=== PATIENT | male | born 1980 | race Caucasian/White ===

== ENCOUNTER 2021-10-07 18:34 | Inpatient (IN) | payer BC ==
[~2021-10-07] VITALS: Ht 193 cm; Wt 144.0 kg
[~2021-10-07 18:34] MED LIST: CLEO300C OR; PERC7.5T8 OR
[2021-10-07] MEDS ORDERED: LABETALOL 100MG/20ML VIAL IV STA (19:38)
[2021-10-07 20:26] LABS: BASO % 0.3 % (0.0-1.0); EOS # 0.1 10^3/uL (0.0-0.5); EOS % 0.8 % (0.0-3.0); HEMATOCRIT 39.3 % (42.0-52.0); LYMPH # 1.6 10^3/uL (1.5-5.0); LYMPH % 13.7 % (24.0-44.0); MEAN CORPUSCULAR HEMOGLOBIN 30.6 pg (27.0-33.0); MEAN CORPUSCULAR HGB CONC 35.6 g/dl (32.0-36.5); MEAN CORPUSCULAR VOLUME 85.8 fl (80.0-96.0); MONO # 0.9 10^3/uL (0.0-0.8); NEUTROPHILS % 76.4 % (36.0-66.0); PLATELET COUNT, AUTOMATED 286 10^3/uL (150-450); RED BLOOD COUNT 4.58 10^6/uL (4.30-6.10); WHITE BLOOD COUNT 11.8 10^3/uL (4.0-10.0)
[2021-10-07 21:00] LABS: CK-MB VALUE MASS 3.8 NG/ML (<3.6); MB/CK RELATIVE INDEX 4.09 (< OR =4)
[2021-10-07 21:02] LABS: CALCIUM LEVEL 9.5 MG/DL (8.5-10.1); CREATININE FOR GFR 2.77 MG/DL (0.70-1.30); FREE T4 0.78 NG/DL (0.76-1.46); GLOMERULAR FILTRATION RATE 27.3 (>60); THYROID STIMULATING HORMONE 2.79 uIU/ML (0.358-3.740)
[2021-10-07 21:26] LABS: RSV AMPLIFICATION NEGATIVE (NEGATIVE)
[2021-10-07] MEDS ORDERED: niCARdipine IV 40 MG in IV 1 EA IV SCH (21:40)
[2021-10-07] MEDS ORDERED: NS 1,000 ML IV ONE (21:40)
[2021-10-07 22:19] LABS: CK-MB VALUE MASS 3.4 NG/ML (<3.6); MB/CK RELATIVE INDEX 4.15 (< OR =4)
[2021-10-07] MEDS ORDERED: HOME MED LIST COMPLETE! XX SCH (23:40)
[2021-10-07] MEDS ORDERED: ASPI325T53 PO (23:40)
[2021-10-07] MEDS ORDERED: ACET-897 PO (23:40)
[2021-10-08] VITALS (35 sets, daily range): BP systolic 148–198; BP diastolic 75–115
[2021-10-08] MEDS ORDERED: POTASSIUM CHLORIDE 10MEQ SR TABLET PO ONE (01:00)
[2021-10-08] MEDS: KCL 10MEQ/100ML SWI (KRUN) 10 MEQ in IV 1 EA IV SCH ×4 (01:00→04:00)
[2021-10-08] MEDS: niCARdipine IV 40 MG in IV 1 EA IV SCH ×5 (01:00→22:25)
[2021-10-08 01:22] LABS: APPEARANCE, URINE CLEAR (CLEAR); BACTERIA, URINE AUTO NEGATIVE (NEGATIVE); BILIRUBIN, URINE AUTO NEGATIVE (NEGATIVE); BLOOD, URINE BLOOD 1+ (NEGATIVE); COLOR, URINE STRAW (YELLOW); GLUCOSE, URINE (UA) AUTO 1+ mg/dL (NEGATIVE); KETONE, URINE AUTO NEGATIVE (NEGATIVE); LEUKOCYTE ESTERASE, URINE AUTO NEGATIVE (NEGATIVE); NITRITE, URINE AUTO NEGATIVE (NEGATIVE); PROTEIN, URINE AUTO 3+ mg/dL (NEGATIVE); RBC, URINE AUTO 8 /HPF (0-3); SPECIFIC GRAVITY URINE AUTO 1.013 (1.002-1.035); SQUAMOUS EPITHELIAL CELL UR AU 0 /HPF (0-6); UROBILINOGEN, URINE AUTO 0.2 mg/dL (0.0-2.0); WBC, URINE AUTO 0 /HPF (0-3)
[2021-10-08 01:26] LABS: MAGNESIUM LEVEL 2.8 MG/DL (1.8-2.4)
[2021-10-08 04:39] LABS: HEMATOCRIT 38.6 % (42.0-52.0); HEMOGLOBIN 13.8 g/dl (13.5-17.5); MEAN CORPUSCULAR HEMOGLOBIN 30.9 pg (27.0-33.0); MEAN CORPUSCULAR HGB CONC 35.8 g/dl (32.0-36.5); MEAN CORPUSCULAR VOLUME 86.4 fl (80.0-96.0); PLATELET COUNT, AUTOMATED 266 10^3/uL (150-450); RED BLOOD COUNT 4.47 10^6/uL (4.30-6.10); WHITE BLOOD COUNT 16.3 10^3/uL (4.0-10.0)
[2021-10-08 05:05] LABS: ALBUMIN 3.1 GM/DL (3.2-5.2); BILIRUBIN,TOTAL 0.4 MG/DL (0.2-1.0); CALCIUM LEVEL 8.5 MG/DL (8.5-10.1); CREATININE FOR GFR 2.46 MG/DL (0.70-1.30); GLOMERULAR FILTRATION RATE 31.3 (>60); POTASSIUM SERUM 3.2 MEQ/L (3.5-5.1); TOTAL PROTEIN 7.3 GM/DL (6.4-8.2)
[2021-10-08] MEDS ORDERED: ACETAMINOPHEN 500 MG TAB PO ONE (05:55)
[2021-10-08] MEDS: HEPARIN SOD (PORCINE) 5000UNITS/ML 1ML VIAL/SYRINGE SC SCH ×2 (08:13→20:04)
[2021-10-09] VITALS (38 sets, daily range): BP systolic 136–191; BP diastolic 67–107
[2021-10-09] MEDS: niCARdipine IV 40 MG in IV 1 EA IV SCH ×3 (06:45→21:06)
[2021-10-09] MEDS: HEPARIN SOD (PORCINE) 5000UNITS/ML 1ML VIAL/SYRINGE SC SCH ×2 (08:32→20:08)
[2021-10-09] MEDS: LABETALOL 100MG/20ML VIAL IV PRN (13:36)
[2021-10-09] MEDS: LABETALOL 200 MG TAB PO SCH ×2 (17:27→20:10)
[2021-10-09] MEDS: **hydrALAZINE HCL** 25 MG TAB PO SCH ×2 (17:28→20:11)
[2021-10-09] MEDS ORDERED: POTASSIUM CHLORIDE 10MEQ SR TABLET PO ONE (19:40)
[2021-10-10] VITALS (44 sets, daily range): BP systolic 142–195; BP diastolic 71–110
[2021-10-10] MEDS: LABETALOL 100MG/20ML VIAL IV PRN ×4 (01:58→20:55)
[2021-10-10] MEDS ORDERED: **hydrALAZINE** 10 MG TAB PO ONE (04:00)
[2021-10-10 04:57] LABS: HEMATOCRIT 34.4 % (42.0-52.0); MEAN CORPUSCULAR HEMOGLOBIN 30.1 pg (27.0-33.0); MEAN CORPUSCULAR HGB CONC 34.9 g/dl (32.0-36.5); MEAN CORPUSCULAR VOLUME 86.2 fl (80.0-96.0); PLATELET COUNT, AUTOMATED 285 10^3/uL (150-450); RED BLOOD COUNT 3.99 10^6/uL (4.30-6.10)
[2021-10-10 05:32] LABS: ALBUMIN 2.8 GM/DL (3.2-5.2); BILIRUBIN,TOTAL 0.3 MG/DL (0.2-1.0); CALCIUM LEVEL 8.2 MG/DL (8.5-10.1); CREATININE FOR GFR 2.58 MG/DL (0.70-1.30); GLOMERULAR FILTRATION RATE 29.7 (>60); MAGNESIUM LEVEL 2.2 MG/DL (1.8-2.4); PHOSPHORUS LEVEL 4.9 MG/DL (2.5-4.9); POTASSIUM SERUM 2.9 MEQ/L (3.5-5.1); TOTAL PROTEIN 6.6 GM/DL (6.4-8.2)
[2021-10-10] MEDS ORDERED: KCL 10MEQ/100ML SWI (KRUN) 10 MEQ in IV 1 EA IV ONE (06:00)
[2021-10-10] MEDS ORDERED: POTASSIUM CHLORIDE 10% LIQ 20 MEQ/15 ML UDC PO ONE (06:00)
[2021-10-10] MEDS: LABETALOL 200 MG TAB PO SCH ×2 (07:33→22:55)
[2021-10-10] MEDS: HEPARIN SOD (PORCINE) 5000UNITS/ML 1ML VIAL/SYRINGE SC SCH ×2 (08:32→20:09)
[2021-10-10] MEDS ORDERED: **hydrALAZINE** 10 MG TAB PO SCH (09:00)
[2021-10-10] MEDS ORDERED: POTASSIUM CHLORIDE 10MEQ SR TABLET PO ONE ×2 (09:30→15:10)
[2021-10-10] MEDS ORDERED: **hydrALAZINE HCL** 25 MG TAB PO ONE (09:30)
[2021-10-10] MEDS: KCL 10MEQ/100ML SWI (KRUN) 10 MEQ in IV 1 EA IV SCH ×2 (09:40→10:58)
[2021-10-10 14:21] LABS: CREATININE FOR GFR 2.56 MG/DL (0.70-1.30); GLOMERULAR FILTRATION RATE 29.9 (>60); POTASSIUM SERUM 3.7 MEQ/L (3.5-5.1)
[2021-10-10 15:17] LABS: CREATININE,RANDOM URINE 53.5 MG/DL
[2021-10-10] MEDS ORDERED: **hydrALAZINE HCL** 25 MG TAB PO SCH (16:00)
[2021-10-10] MEDS: **hydrALAZINE** 50 MG TAB PO SCH ×2 (16:17→20:09)
[2021-10-10] MEDS ORDERED: LABETALOL 200 MG TAB PO SCH (21:00)
[2021-10-10] MEDS ORDERED: hydrALAZINE 20MG/ML 1ML VIAL (J0360 PER 20MG) IV ONE (22:00)
[2021-10-11] VITALS (22 sets, daily range): BP systolic 128–183; BP diastolic 60–104
[2021-10-11 04:47] LABS: HEMATOCRIT 33.9 % (42.0-52.0); HEMOGLOBIN 11.5 g/dl (13.5-17.5); MEAN CORPUSCULAR HEMOGLOBIN 30.2 pg (27.0-33.0); MEAN CORPUSCULAR HGB CONC 33.9 g/dl (32.0-36.5); PLATELET COUNT, AUTOMATED 281 10^3/uL (150-450); RED BLOOD COUNT 3.81 10^6/uL (4.30-6.10); WHITE BLOOD COUNT 10.8 10^3/uL (4.0-10.0)
[2021-10-11 05:09] LABS: HEMOGLOBIN A1c 5.1 %
[2021-10-11 05:12] LABS: ALBUMIN 2.7 GM/DL (3.2-5.2); BILIRUBIN,TOTAL 0.3 MG/DL (0.2-1.0); CALCIUM LEVEL 8.4 MG/DL (8.5-10.1); CREATININE FOR GFR 2.45 MG/DL (0.70-1.30); GLOMERULAR FILTRATION RATE 31.5 (>60); MAGNESIUM LEVEL 2.1 MG/DL (1.8-2.4); PHOSPHORUS LEVEL 3.7 MG/DL (2.5-4.9); POTASSIUM SERUM 3.5 MEQ/L (3.5-5.1); TOTAL PROTEIN 6.5 GM/DL (6.4-8.2)
[2021-10-11] MEDS: LABETALOL 100MG/20ML VIAL IV PRN (05:28)
[2021-10-11] MEDS: HEPARIN SOD (PORCINE) 5000UNITS/ML 1ML VIAL/SYRINGE SC SCH ×2 (08:21→20:28)
[2021-10-11] MEDS: **hydrALAZINE** 50 MG TAB PO SCH ×3 (08:21→20:28)
[2021-10-11] MEDS: POTASSIUM CHLORIDE 10MEQ SR TABLET PO SCH ×2 (09:01→20:27)
[2021-10-11] MEDS: LABETALOL 200 MG TAB PO SCH ×2 (12:12→23:26)
[2021-10-12] VITALS (10 sets, daily range): BP systolic 130–184; BP diastolic 77–102
[2021-10-12] MEDS: LABETALOL 100MG/20ML VIAL IV PRN ×2 (02:04→09:08)
[2021-10-12 06:20] LABS: HEMATOCRIT 34.1 % (42.0-52.0); HEMOGLOBIN 11.3 g/dl (13.5-17.5); MEAN CORPUSCULAR HEMOGLOBIN 29.7 pg (27.0-33.0); MEAN CORPUSCULAR HGB CONC 33.1 g/dl (32.0-36.5); MEAN CORPUSCULAR VOLUME 89.7 fl (80.0-96.0); PLATELET COUNT, AUTOMATED 339 10^3/uL (150-450); WHITE BLOOD COUNT 9.6 10^3/uL (4.0-10.0)
[2021-10-12 06:43] LABS: ALBUMIN 2.7 GM/DL (3.2-5.2); BILIRUBIN,TOTAL 0.3 MG/DL (0.2-1.0); CALCIUM LEVEL 9.1 MG/DL (8.5-10.1); CREATININE FOR GFR 2.43 MG/DL (0.70-1.30); GLOMERULAR FILTRATION RATE 31.8 (>60); MAGNESIUM LEVEL 2.2 MG/DL (1.8-2.4); PHOSPHORUS LEVEL 4.2 MG/DL (2.5-4.9); POTASSIUM SERUM 3.8 MEQ/L (3.5-5.1); TOTAL PROTEIN 6.5 GM/DL (6.4-8.2)
[2021-10-12] MEDS: POTASSIUM CHLORIDE 10MEQ SR TABLET PO SCH (08:13)
[2021-10-12] MEDS: **hydrALAZINE** 50 MG TAB PO SCH ×3 (08:13→20:28)
[2021-10-12] MEDS: HEPARIN SOD (PORCINE) 5000UNITS/ML 1ML VIAL/SYRINGE SC SCH ×2 (08:13→20:27)
[2021-10-12] MEDS: METOPROLOL SUCC (TopROL XL) 100MG *XL* TAB PO SCH ×2 (09:00→20:28)
[2021-10-12] MEDS: LABETALOL 200 MG TAB PO SCH (10:21)
[2021-10-12] MEDS ORDERED: SPIRONOLACTONE 25 MG TAB PO ONE (11:40)
[2021-10-13] VITALS (12 sets, daily range): BP systolic 122–203; BP diastolic 73–117
[2021-10-13] MEDS ORDERED: LABETALOL 100MG/20ML VIAL IV STA (00:48)
[2021-10-13] MEDS ORDERED: LABETALOL 200 MG TAB PO SCH (01:10)
[2021-10-13] MEDS ORDERED: hydrALAZINE 20MG/ML 1ML VIAL (J0360 PER 20MG) IV ONE ×2 (01:45→04:00)
[2021-10-13] MEDS ORDERED: cloNIDine 0.1MG TABLET PO ONE (02:55)
[2021-10-13 06:07] LABS: HEMATOCRIT 34.7 % (42.0-52.0); HEMOGLOBIN 11.6 g/dl (13.5-17.5); MEAN CORPUSCULAR HEMOGLOBIN 29.9 pg (27.0-33.0); MEAN CORPUSCULAR HGB CONC 33.4 g/dl (32.0-36.5); MEAN CORPUSCULAR VOLUME 89.4 fl (80.0-96.0); PLATELET COUNT, AUTOMATED 348 10^3/uL (150-450); RED BLOOD COUNT 3.88 10^6/uL (4.30-6.10)
[2021-10-13 06:35] LABS: ALBUMIN 2.9 GM/DL (3.2-5.2); BILIRUBIN,TOTAL 0.3 MG/DL (0.2-1.0); CALCIUM LEVEL 9.2 MG/DL (8.5-10.1); CREATININE FOR GFR 2.39 MG/DL (0.70-1.30); GLOMERULAR FILTRATION RATE 32.4 (>60); MAGNESIUM LEVEL 2.1 MG/DL (1.8-2.4); POTASSIUM SERUM 3.9 MEQ/L (3.5-5.1); TOTAL PROTEIN 6.7 GM/DL (6.4-8.2)
[2021-10-13] MEDS: METOPROLOL SUCC (TopROL XL) 100MG *XL* TAB PO SCH ×2 (08:23→21:26)
[2021-10-13] MEDS: SPIRONOLACTONE 25 MG TAB PO SCH (08:23)
[2021-10-13] MEDS: **hydrALAZINE** 50 MG TAB PO SCH ×3 (08:23→21:26)
[2021-10-13] MEDS: HEPARIN SOD (PORCINE) 5000UNITS/ML 1ML VIAL/SYRINGE SC SCH ×2 (08:24→21:26)
[2021-10-13] MEDS ORDERED: ACETAMINOPHEN TAB 650MG DOSE (2X325MG) PO ONE (09:15)
[2021-10-13] MEDS ORDERED: ACETAMINOPHEN TAB 650MG DOSE (2X325MG) PO PRN (09:45)
[2021-10-13] MEDS ORDERED: cloNIDine 0.1MG TABLET PO PRN (10:45)
[2021-10-13] MEDS: cloNIDine 0.1MG TABLET PO SCH ×2 (10:55→18:20)
[2021-10-14 00:59] VITALS: BP 178/96
[2021-10-14 04:00] VITALS: BP 160/90
[2021-10-14] MEDS: cloNIDine 0.1MG TABLET PO SCH ×2 (05:05→11:00)
[2021-10-14 06:20] LABS: BASO # 0.1 10^3/uL (0.0-0.2); BASO % 0.6 % (0.0-1.0); EOS # 0.5 10^3/uL (0.0-0.5); EOS % 4.5 % (0.0-3.0); LYMPH # 2.1 10^3/uL (1.5-5.0); LYMPH % 21.2 % (24.0-44.0); MEAN CORPUSCULAR HEMOGLOBIN 29.4 pg (27.0-33.0); MEAN CORPUSCULAR HGB CONC 32.4 g/dl (32.0-36.5); MEAN CORPUSCULAR VOLUME 90.9 fl (80.0-96.0); MONO # 0.9 10^3/uL (0.0-0.8); MONO % 8.7 % (2.0-8.0); NEUTROPHILS # 6.4 10^3/uL (1.5-8.5); NEUTROPHILS % 63.2 % (36.0-66.0); PLATELET COUNT, AUTOMATED 365 10^3/uL (150-450); RED BLOOD COUNT 3.74 10^6/uL (4.30-6.10); WHITE BLOOD COUNT 10.1 10^3/uL (4.0-10.0)
[2021-10-14 06:47] LABS: CALCIUM LEVEL 8.9 MG/DL (8.5-10.1); CREATININE FOR GFR 2.65 MG/DL (0.70-1.30); GLOMERULAR FILTRATION RATE 28.8 (>60)
[2021-10-14 07:52] VITALS: BP 144/86
[2021-10-14] MEDS: SPIRONOLACTONE 25 MG TAB PO SCH (08:57)
[2021-10-14] MEDS: METOPROLOL SUCC (TopROL XL) 100MG *XL* TAB PO SCH (08:57)
[2021-10-14] MEDS: **hydrALAZINE** 50 MG TAB PO SCH (08:57)
[2021-10-14] MEDS: HEPARIN SOD (PORCINE) 5000UNITS/ML 1ML VIAL/SYRINGE SC SCH (08:58)
[2021-10-14 11:00] VITALS: BP 139/79
[2021-10-14] MEDS ORDERED: METO1TAB33 PO (11:30)
[2021-10-14] MEDS ORDERED: ALDA25TA2 PO (11:30)
[2021-10-14] MEDS ORDERED: CLONI1TA PO ×2 (11:30)
[2021-10-14] MEDS ORDERED: HYDR50TA PO (11:30)
[2021-10-14] MEDS ORDERED: BLOOKIT XX (11:36)
[2021-10-14 12:15] VITALS: BP 139/79
== END 2021-10-14 13:41 | disposition home or self-care (01) | DRG 199 ==
LOC: M ED 18:34 → M ED INP 23:36 → M ICU 10-08 02:26 → M 4MAIN 10-11 09:05
PROVIDERS: ADMIT Internal Medicine; ATTEND Internal Medicine
DX: I16.9 Hypertensive crisis, unspecified (principal); I21.A1 Myocardial infarction type 2; U07.1 COVID-19; N17.9 Acute kidney failure, unspecified; N28.1 Cyst of kidney, acquired; E87.6 Hypokalemia; R51.9 Headache, unspecified; I12.9 Hypertensive chronic kidney disease with stage 1 through stage 4 chronic kidney disease, or unspecified chronic kidney disease; N18.9 Chronic kidney disease, unspecified; Z79.899 Other long term (current) drug therapy; D64.9 Anemia, unspecified